=== PATIENT | female | born 1990 | race Caucasian/White ===

== ENCOUNTER 2021-09-14 20:46 | Inpatient (IN) | payer BC ==
[2021-09-14] MEDS ORDERED: Promethazine HCl 25 MG/ML VIAL IM PRN (20:48)
[2021-09-14] MEDS ORDERED: Methylergonovine 0.2 MG/ML VIAL IM PRN (20:48)
[2021-09-14] MEDS ORDERED: Misoprostol 200 MCG TAB PR PRN (20:48)
[2021-09-14] MEDS ORDERED: HYDROcodone/Acetaminophen 5/325 mg Tablet PO PRN ×2 (20:48)
[2021-09-14] MEDS ORDERED: hydrALAZINE 20 MG/ML VIAL SLOW IVP PRN (20:48)
[2021-09-14] MEDS ORDERED: Lidocaine 1% (PF) 30 ML VIAL SC PRN (20:48)
[2021-09-14] MEDS ORDERED: Ibuprofen 800 MG TAB PO PRN (20:48)
[2021-09-14] MEDS ORDERED: Diphenoxylate HCl/Atropine Tablet PO PRN ×2 (20:48)
[2021-09-14] MEDS ORDERED: Carboprost 250 MCG/ML AMP IM PRN (20:48)
[2021-09-14] MEDS ORDERED: Lactated Ringer's 1,000 ML IV PRN (20:48)
[2021-09-14] MEDS ORDERED: Misoprostol 100 MCG TAB PO SCH (21:00)
[2021-09-14] MEDS ORDERED: NS w/ Oxytocin 30 units 500 ML IV SCH ×2 (21:00)
[2021-09-14 22:57] VITALS: BMI 27.6
[2021-09-14 23:30] LABS: Hemoglobin 13.5 g/dL (12.0-15.5); Mean Corpuscular Hemoglobin 31.3 pg (27.0-33.0); Mean Corpuscular Volume 89.6 fl (81.6-98.3); Mean Platelet Volume 10.8 fl (7.4-10.4); Platelet Count 205 10x3/uL (150-450); RBC Distribution Width 13.9 % (11.5-14.5); Red Blood Cell (RBC) Count 4.31 10x6/uL (3.90-5.03); White Blood Cell (WBC) Count 11.4 10x3/uL (3.5-10.5)
[2021-09-14 23:59] LABS: Hep B Surf Ag Non-Reactive S/CO (NonReactive); Syphilis Antibody Nonreactive (Nonreactive); Syphilis Antibody Index 0.03 S/CO (<1.00 Non-Reactive)
[2021-09-15 00:01] LABS: HBSAg Index 0.18 S/CO (0-0.99)
[2021-09-15] MEDS ORDERED: Misoprostol 100 MCG TAB ONE (02:46)
[2021-09-15] MEDS: Calcium Carbonate 500 MG ChewTAB PO PRN ×2 (03:21→08:10)
[2021-09-15] MEDS ORDERED: Ondansetron PF 4 MG/2 ML Vial ONE (12:22)
[2021-09-15] MEDS: Ondansetron PF 4 MG/2 ML Vial IVP PRN ×2 (12:26→17:19)
[2021-09-15] MEDS: Butorphanol Tartrate 1 MG/ML VIAL SLOW IVP PRN ×2 (17:19→18:11)
[2021-09-15] MEDS ORDERED: diphenhydrAMINE 50 MG/ML VIAL ONE (17:56)
[2021-09-15] MEDS ORDERED: Methylergonovine 0.2 MG/ML VIAL ONE (20:34)
[2021-09-15] MEDS ORDERED: Misoprostol 200 MCG TAB ONE ×2 (20:37→20:39)
[2021-09-15] MEDS ORDERED: Tranexamic Acid 1,000 MG/10 ML VIAL ONE (20:39)
[2021-09-15] MEDS ORDERED: Misoprostol 200 MCG TAB VAG PRN (23:14)
[2021-09-15] MEDS ORDERED: Methylergonovine 0.2 MG/ML VIAL IM PRN (23:14)
[2021-09-15] MEDS ORDERED: Bisacodyl 10 MG SUPP PR PRN (23:14)
[2021-09-15] MEDS ORDERED: HYDROcodone/Acetaminophen 5/325 mg Tablet PO PRN (23:14)
[2021-09-15] MEDS ORDERED: Lanolin Ointment 7 GM TUBE TOP PRN (23:14)
[2021-09-15] MEDS ORDERED: Ondansetron PF 4 MG/2 ML Vial IVP PRN (23:14)
[2021-09-15] MEDS ORDERED: NS w/ Oxytocin 30 units 500 ML IV SCH (23:14)
[2021-09-15] MEDS ORDERED: hydrALAZINE 20 MG/ML VIAL SLOW IVP PRN (23:14)
[2021-09-15] MEDS ORDERED: Boostrix 0.5 ML (Tdap) VIAL IM ONE (23:14)
[2021-09-15] MEDS ORDERED: Benzocaine-Menthol 82.5 ML CAN TOP PRN (23:14)
[2021-09-15] MEDS ORDERED: Milk Of Magnesia 30 ML UDCUP PO PRN (23:14)
[2021-09-15] MEDS ORDERED: Docusate 100 MG CAP PO SCH (23:30)
[2021-09-15] MEDS ORDERED: Ibuprofen 800 MG TAB PO SCH (23:30)
[2021-09-15] MEDS: HYDROcodone/Acetaminophen 5/325 mg Tablet PO PRN (23:31)
[2021-09-16] MEDS: Ibuprofen 800 MG TAB PO SCH ×3 (04:44→21:38)
[2021-09-16] MEDS: Ferrous Sulfate 325 MG TAB PO SCH (07:42)
[2021-09-16] MEDS: Prenatal Vitamin 1 TAB PO SCH (08:19)
[2021-09-16] MEDS: Docusate 100 MG CAP PO SCH ×2 (08:19→21:37)
[2021-09-16] MEDS: HYDROcodone/Acetaminophen 5/325 mg Tablet PO PRN ×3 (08:20→23:15)
[2021-09-17] MEDS: HYDROcodone/Acetaminophen 5/325 mg Tablet PO PRN ×2 (04:30→11:29)
[2021-09-17] MEDS: Ibuprofen 800 MG TAB PO SCH (06:01)
[2021-09-17] MEDS: Prenatal Vitamin 1 TAB PO SCH (11:28)
[2021-09-17 11:52] VITALS: BP 132/62; TEMP 98.2
== END 2021-09-17 12:30 | disposition home or self-care (01) | DRG 807 ==
LOC: CSHLD 20:46 → CSHPP 09-15 23:05
PROVIDERS: ADMIT Obstetrics & Gynecology; ATTEND Obstetrics & Gynecology
PROC: 10E0XZZ Delivery of Products of Conception, External Approach (ICD-10-PCS; principal; 2021-09-15)
PROC: 0HQ9XZZ Repair Perineum Skin, External Approach (ICD-10-PCS; 2021-09-15)
PROC: 10907ZC Drainage of Amniotic Fluid, Therapeutic from Products of Conception, Via Natural or Artificial Opening (ICD-10-PCS; 2021-09-15)
PROC: 3E0P7VZ Introduction of Hormone into Female Reproductive, Via Natural or Artificial Opening (ICD-10-PCS; 2021-09-15)
PROC: 3E033VJ Introduction of Other Hormone into Peripheral Vein, Percutaneous Approach (ICD-10-PCS; 2021-09-15)
DX: O48.0 Post-term pregnancy (principal); Z37.0 Single live birth; Z3A.40 40 weeks gestation of pregnancy; F32.A Depression, unspecified; F41.9 Anxiety disorder, unspecified; Z79.82 Long term (current) use of aspirin; O99.344 Other mental disorders complicating childbirth; L40.50 Arthropathic psoriasis, unspecified; O99.892 Other specified diseases and conditions complicating childbirth; O32.6XX0 Maternal care for compound presentation, not applicable or unspecified; O70.0 First degree perineal laceration during delivery
CPT/HCPCS: 85027; 86780; 86850; 86900; 86901; 87340; J0595; J2405; J2590; J7120; U0003; U0005